=== PATIENT | male | born 1980 | race American Indian/Alaskan Native ===

== ENCOUNTER 2017-03-19 17:32 | Inpatient (IN) | payer MEDICAID, OTHER ==
--- NOTE | 2017-03-19 18:33 | ED PDOC ---
Arrival/HPI - General Chief Complaint: GI Problem Time Seen by Provider: 03/19/17 18:32 Historian: Patient - History of Present Illness Narrative History of Present Illness (Text): 03/19/17 18:32 A 36 year old male, whose past medical history includes asthma, presents to the emergency department complaining of generalized weakness over the past 4-5 days. Patient notes excess thirst and urination, mild nausea and non-bilious non -bloody vomiting. Patient denies any fever, chills, abdominal pain, chest pain, shortness of breath or any other complaints. Time/Duration: Other (4-5 days) Symptom Course: Unchanged Context: Home Past Medical History - Provider Review Nursing Documentation Reviewed: Yes - Infectious Disease Hx of Infectious Diseases: None - Pulmonary Hx Asthma: Yes - Psychiatric Hx Substance Use: Yes - Anesthesia Hx Anesthesia: No Family/Social History - Physician Review Nursing Documentation Reviewed: Yes Family/Social History: No Known Family HX Smoking Status: Light Smoker < 10 Cigarettes Daily Hx Alcohol Use: No Hx Substance Use: Yes Substance used: marijuana Allergies/Home Meds Allergies/Adverse Reactions: Allergies No Known Allergies Allergy (Verified 03/19/17 17:36) Home Medications: Home Meds Medication Instructions Recorded Confirmed No Known Home Med 03/19/17 03/19/17 Physical Exam - Physical Exam Narrative Physical Exam (Text): - Review of Systems Constitutional: (+) Generalized weakness. absent: Weight Change, Fevers Eyes: Normal ENT: (+) excess thirst. denies sore throat, denies tristhmus Respiratory: Normal. absent: SOB, Cough, Sputum Cardiovascular: absent: Chest Pain, Palpitations, Syncope Gastrointestinal: (+) Nausea, Vomiting absent: Abdominal Pain, Diarrhea Genitourinary: (+) frequency absent: Dysuria, Hematuria, vaginal bleeding Musculoskeletal: Normal. absent: Arthralgias, Back Pain, Neck Pain Skin: no rashes, no erythema Neurological: absent: Focal Weakness Endocrine: Normal Hemo/Lymphatic: Normal Psychiatric: No suicidal or homicidal ideations Physical exam Patient appears age appropriate in no distress, speaking full sentences without difficulty - Systems Exam Head: Present: Atraumatic, Normocephalic Pupils: Present: PERRL Extroacular Muscles: Present: EOMI Conjunctiva: Present: Normal Mouth: Present: Moist Mucous Membranes Neck: Present: Normal Range of Motion. No: MIDLINE TENDERNESS, Paraspinal Tenderness Respiratory/Chest: Present: Clear to Auscultation, Good Air Exchange. No: Respiratory Distress, Accessory Muscle Use, Tachypneic Cardiovascular: Present: Regular Rate and Rhythm, Normal S1, S2, Peripheal Pulses Present. No: Murmurs Abdomen: Present: Normal Bowel Sounds. No: Tenderness, Distention, Peritoneal Signs, Rebound, Guarding Back: Present: Normal Inspection. No: Midline Tenderness, Paraspinal Tenderness Upper Extremity: Present: Normal Inspection. No: Cyanosis, Edema Lower Extremity: Present: Normal Inspection. No: Edema Neurological: Present: GCS=15, Speech Normal, cranial nerves II through XII fully intact with no cerebellar abnormality, neurosensory fully intact. No focal neurological deficits. Skin: Present: Warm, Dry, Normal Color. No: Rashes Lymphatic: Present: OX3, NI, NC Psychiatric: Present: Alert, Oriented x 3, Normal Insight, Normal Concentration Vital Signs Reviewed: Yes Vital Signs Temp Pulse Resp BP Pulse Ox 03/19/17 17:40 98.6 F 115 H 18 126/88 97 Temperature: Afebrile Blood Pressure: Normal Pulse: Tachycardic Respiratory Rate: Normal Appearance: Positive for: Well-Appearing, Non-Toxic, Comfortable Pain Distress: None Mental Status: Positive for: Alert and Oriented X 3 Finger Stick Blood Glucose: 378 Medical Decision Making ED Course and Treatment: Impression: A 36 year old male with generalized weakness. Patient notes excess thirst and urination, nausea and vomiting. Physical exam unremarkable. Plan: -- Chest xray -- Labs -- Urinalysis -- IV fluids -- Reassess and disposition Progress Notes: EKG shows NSR at [address]-segment elevations, normal intervals. Interpreted by me. 03/19/17 20:37 glucose 479 gap 20 Ph 7.29 fluids ordered .1U/kg/hr drip ordered dw Dr. Cantor from MICU, accepted MICU admission pt in no distress, aware of and agrees with plan Chest xray interpreted by ED physician shows no pneumothorax, no cardiomegaly, no infiltrates - Lab Interpretations Lab Results: 03/19/17 18:55 03/19/17 18:55 Lab Results 03/19/17 18:55: Sodium 142, Chloride 101, Potassium 4.8, Carbon Dioxide 21, Anion Gap 25 H, BUN 18, Creatinine 1.4, Est GFR ( Amer) > 60, Est GFR ( Non-Af Amer) 57, Random Glucose 479 H*, Calcium 10.2, Total Bilirubin 1.1, AST 29, ALT 37, Alkaline Phosphatase 138 H, Total Protein 9.7 H, Albumin 4.9 H, Globulin 4.8, Albumin/Globulin Ratio 1.0 L 03/19/17 18:55: pO2 47, VBG pH 7.29 L, VBG pCO2 41.0, VBG HCO3 19.7 L, VBG Total CO2 21.0 L, VBG O2 Sat (Calc) 84.4 H, VBG Base Excess -6.6 L, VBG Potassium 4.7, Sodium 140.0, Chloride 101.0, Glucose 475 H*, Lactate 1.7, FiO2 21.0, Venous Blood Potassium 4.7 03/19/17 18:55: WBC 15.9 H, RBC 5.83, Hgb 17.0, Hct 47.9, MCV 82.2, MCH 29.2, MCHC 35.5, RDW 13.5, Plt Count 151, MPV 12.4 H, Gran % 72.9 H, Lymph % (Auto) 18.2 L, [place] % (Auto) 8.3 H, Eos % (Auto) 0.3 L, Baso % (Auto) 0.3, Gran # 11.58 H, Lymph # 2.9, [place] # 1.3 H, Eos # 0.1, Baso # 0.04 03/19/17 18:22: POC Glucose (mg/dL) 378 H I have reviewed the lab results: Yes - RAD Interpretation Radiology Orders: 03/19/17 18:35 CHEST PORTABLE [RAD] Stat - Medication Orders Current Medication Orders: Insulin Human Regular 100 (units/ Sodium Chloride) 100 mls @ 10 mls/hr IV .Q10H PRN; Protocol; 10 UNITS/HR PRN Reason: TITRATE PER MD ORDER Discontinued Medications Sodium Chloride (Sodium Chloride 0.9%) 2,000 mls @ 1,000 mls/hr IV .Q2H STA Stop: 03/19/17 20:34 Last Admin: 03/19/17 18:56 Dose: 1,000 mls/hr - Scribe Statement The provider has reviewed the documentation as recorded by the Scribe Adwoa Carrvez Provider Neshaibe Attestation: All medical record entries made by the Scribe were at my direction and personally dictated by me. I have reviewed the chart and agree that the record accurately reflects my personal performance of the history, physical exam, medical decision making, and the department course for this patient. I have also personally directed, reviewed, and agree with the discharge instructions and disposition. Disposition/Present on Arrival - Present on Arrival Any Indicators Present on Arrival: No History of DVT/PE: No History of Uncontrolled Diabetes: No Urinary Catheter: No History of Decub. Ulcer: No History Surgical Site Infection Following: None - Disposition Have Diagnosis and Disposition been Completed?: Yes Diagnosis: DKA (diabetic ketoacidoses) Disposition: HOSPITALIZED Disposition Time: 20:39 Patient Plan: Admission Condition: FAIR Referrals: Milan Skaggs, [Primary Care Provider] - Follow up with primary Forms: [employer] (Belarusian)
[2017-03-19] MEDS ORDERED: Sodium Chloride 0.9% 2,000 ML IV STA (18:35)
[2017-03-19 19:06] LABS: VENOUS BLOOD GAS BASE EXCESS -6.6 mmol/L (0.0-2.0); VENOUS BLOOD PH 7.29 (7.32-7.43)
[2017-03-19 19:08] LABS: BASO # 0.04 K/mm3 (0.0-2.0); BASO % 0.3 % (0.0-3.0); EOS # 0.1 (0.0-0.7); EOS % 0.3 % (1.5-5.0); GRAN # 11.58 (1.4-6.5); GRAN % 72.9 % (50.0-68.0); HEMATOCRIT 47.9 % (42.0-52.0); LYMPH # 2.9 (1.2-3.4); LYMPH % 18.2 % (22.0-35.0); MEAN CELL VOLUME 82.2 fl (80.0-105.0); MEAN CORPUSCULAR HEMOGLOBIN 29.2 pg (25.0-35.0); MEAN CORPUSCULAR HGB CONC 35.5 g/dl (31.0-37.0); MEAN PLATELET VOLUME 12.4 fl (7.0-11.0); MONO # 1.3 (0.1-0.6); MONO % 8.3 % (1.0-6.0); RED CELL DISTRIBUTION WIDTH 13.5 % (11.5-14.5); WHITE BLOOD COUNT 15.9 10^3/ul (4.5-11.0)
[2017-03-19 19:16] LABS: ALKALINE PHOSPHATASE 138 U/L (38-126); ALT/SGPT 37 U/L (7-56); AST/SGOT 29 U/L (17-59); BILIRUBIN,TOTAL 1.1 mg/dL (0.2-1.3); BLOOD UREA NITROGEN 18 mg/dL (7-21); CALCIUM 10.2 mg/dL (8.4-10.5); CARBON DIOXIDE 21 mmol/L (21-33); CHLORIDE 101 mmol/L (98-107); GFR AFRICAN-AMERICAN > 60; POTASSIUM 4.8 mmol/L (3.6-5.0); SODIUM 142 mmol/L (132-148); TOTAL PROTEIN 9.7 g/dL (5.8-8.3)
[2017-03-19 19:19] LABS: GLUCOSE,RANDOM 479 mg/dL (70-110)
[2017-03-19] MEDS ORDERED: Insulin Regular 100 UNITS in Sodium Chloride 0.9% 99 ML IV PRN ×2 (20:33→21:27)
[2017-03-19 20:50] LABS: URINE BILIRUBIN NEGATIVE (NEGATIVE); URINE BLOOD TRACE-INTACT (NEGATIVE); URINE GLUCOSE (UA) >=1000 mg/dL (NEGATIVE); URINE KETONE >=80 mg/dL (NEGATIVE); URINE LEUKOCYTE ESTERASE NEGATIVE Leu/uL (NEGATIVE); URINE PROTEIN NEGATIVE mg/dL (<30 mg/dL); URINE UROBILINOGEN 0.2 E.U./dL (<1 E.U./dL)
[2017-03-19 20:54] LABS: URINE APPEARANCE CLEAR (CLEAR); URINE COLOR YELLOW (YELLOW)
[2017-03-19 21:24] LABS: URINE EPITHELIAL CELLS 0 - 2 /hpf (0-5); URINE WBC NEGATIVE /hpf (0-6)
[2017-03-19 21:25] LABS: URINE BACTERIA FEW (NEG)
[2017-03-19] MEDS ORDERED: Sodium Chloride 0.9% 1,000 ML IV STA (21:26)
--- NOTE | 2017-03-19 22:12 | CP.PCM.HP ---
<MIKE WEBER - Last Filed: 03/19/17 22:47> History of Present Illness - History of Present Illness History of Present Illness: Mike Weber DO PGY1 - Internal Medicine H&P / ICU Admission CC: Frequent urination and excessive thirst HPI: 36 yo M with PMH of asthma presents to ER complaining of frequent urination and excessive thirst for the past 7 days, associated with fatigue and vomiting. He also reports a 2 day history of diarrhea 2 days ago, started with very dark (but not black) stools which then became green, then soft brown. He denies F/C, CP, SOB, cough, abdominal pain, sore throat, nasal congestion, recent illness or travel, sick contacts. He admits to vomiting whenever he tries to eat or drink. He has never had this problem before. PMH: Mild intermittent asthma Meds: Ventolin PRN PSH: None Social: Tob 5PYH current smoker, EtOH denies, Illicits daily marijuana use FHx: DM in grandmother All: NKDA ROS: Constitutional: +Fatigue pt denies fever, chills, generalized weakness ENT: pt denies dysphagia, otalgia, hearing deficit, rhinorrhea Eyes: pt denies sudden loss of vision, diplopia, blurred vision MSK: pt denies muscle stiffness, joint pain, extremity cramping Cardio: pt denies sob, heart murmur, CP Pulm: pt denies cough, hemoptysis, wheeze GI: +Loss of appetite, vomiting, diarrhea pt denies abdominal pain, constipation , melena, nausea : +Urinary frequency pt denies burning on urination, hematuria, urinary urgency Neuro: pt denies paresis, paresthesia, dizziness, herndon, numbness, tingling Derm: pt denies skin changes, lesions, nail changes Endo: +Polydipsia pt denies intolerance to heat/cold, diaphoresis, night sweats Psych: pt denies anxiety, depression, mood changes Present on Admission - Present on Admission Any Indicators Present on Admission: No Past Patient History - Infectious Disease Hx of Infectious Diseases: None - Past Social History Smoking Status: Light Smoker < 10 Cigarettes Daily - PULMONARY Hx Asthma: Yes - PSYCHIATRIC Hx Substance Use: Yes - SURGICAL HISTORY Hx Surgeries: No - ANESTHESIA Hx Anesthesia: No Meds Allergies/Adverse Reactions: Allergies Allergy/AdvReac Type Severity Reaction Status Date / Time No Known Allergies Allergy Verified 03/19/17 17:36 Physical Exam - Constitutional Appears: Non-toxic, No Acute Distress - Head Exam Head Exam: ATRAUMATIC, NORMOCEPHALIC - Eye Exam Eye Exam: EOMI, PERRL - ENT Exam ENT Exam: Mucous Membranes Dry - Neck Exam Neck exam: Negative for: Lymphadenopathy, Thyromegaly - Respiratory Exam Respiratory Exam: Clear to Auscultation Bilateral. absent: Rales, Rhonchi, Wheezes - Cardiovascular Exam Cardiovascular Exam: RRR, +S1, +S2 - GI/Abdominal Exam GI & Abdominal Exam: Normal Bowel Sounds, Soft. absent: Tenderness - Extremities Exam Extremities exam: Negative for: calf tenderness, pedal edema - Back Exam Back exam: absent: CVA tenderness (L), CVA tenderness (R) - Neurological Exam Neurological exam: Alert, CN II-XII Intact, Oriented x3 - Psychiatric Exam Psychiatric exam: Normal Affect, Normal Mood - Skin Skin Exam: Dry, Intact, Normal Color Results - Vital Signs Recent Vital Signs: Last Vital Signs Temp 98.6 F 03/19/17 17:40 Pulse 115 H 03/19/17 17:40 Resp 18 03/19/17 17:40 BP 126/88 03/19/17 17:40 Pulse Ox 97 03/19/17 17:40 - Labs Result Diagrams: 03/19/17 18:55 03/19/17 18:55 Labs: Laboratory Results - last 24 hr 03/19/17 03/19/17 03/19/17 18:22 18:55 18:55 WBC 15.9 H RBC 5.83 Hgb 17.0 Hct 47.9 MCV 82.2 MCH 29.2 MCHC 35.5 RDW 13.5 Plt Count 151 MPV 12.4 H Gran % 72.9 H Lymph % (Auto) 18.2 L [place] % (Auto) 8.3 H Eos % (Auto) 0.3 L Baso % (Auto) 0.3 Gran # 11.58 H Lymph # 2.9 [place] # 1.3 H Eos # 0.1 Baso # 0.04 pO2 47 VBG pH 7.29 L VBG pCO2 41.0 VBG HCO3 19.7 L VBG Total CO2 21.0 L VBG O2 Sat (Calc) 84.4 H VBG Base Excess -6.6 L VBG Potassium 4.7 Sodium 140.0 Chloride 101.0 Glucose 475 H* Lactate 1.7 FiO2 21.0 Potassium Carbon Dioxide Anion Gap BUN Creatinine Est GFR ( Amer) Est GFR (Non-Af Amer) POC Glucose (mg/dL) 378 H Random Glucose Calcium Total Bilirubin AST ALT Alkaline Phosphatase Total Protein Albumin Globulin Albumin/Globulin Ratio Venous Blood Potassium 4.7 Urine Color Urine Appearance Urine pH Ur Specific [place] Urine Protein Urine Glucose (UA) Urine Ketones Urine Blood Urine Nitrate Urine Bilirubin Urine Urobilinogen Ur Leukocyte Esterase Urine RBC Urine WBC Ur Epithelial Cells Urine Bacteria 03/19/17 03/19/17 03/19/17 18:55 20:28 21:29 WBC RBC Hgb Hct MCV MCH MCHC RDW Plt Count MPV Gran % Lymph % (Auto) [place] % (Auto) Eos % (Auto) Baso % (Auto) Gran # Lymph # [place] # Eos # Baso # pO2 VBG pH VBG pCO2 VBG HCO3 VBG Total CO2 VBG O2 Sat (Calc) VBG Base Excess VBG Potassium Sodium 142 Chloride 101 Glucose Lactate FiO2 Potassium 4.8 Carbon Dioxide 21 Anion Gap 25 H BUN 18 Creatinine 1.4 Est GFR ( Amer) > 60 Est GFR (Non-Af Amer) 57 POC Glucose (mg/dL) 356 H Random Glucose 479 H* Calcium 10.2 Total Bilirubin 1.1 AST 29 ALT 37 Alkaline Phosphatase 138 H Total Protein 9.7 H Albumin 4.9 H Globulin 4.8 Albumin/Globulin Ratio 1.0 L Venous Blood Potassium Urine Color Yellow Urine Appearance Clear Urine pH 6.0 Ur Specific [place] 1.015 Urine Protein Negative Urine Glucose (UA) >=1000 Urine Ketones >=80 Urine Blood Trace-intact H Urine Nitrate Negative Urine Bilirubin Negative Urine Urobilinogen 0.2 Ur Leukocyte Esterase Negative Urine RBC 1 - 3 Urine WBC Negative Ur Epithelial Cells 0 - 2 Urine Bacteria Few Assessment & Plan - Assessment and Plan (Free Text) Assessment: 36 yo M with PMH of mild intermittent asthma presents in DKA, new onset diabetes Plan: Neuro - Patient AAOx3, mentating well; neuro exam grossly normal - Continue to monitor Cardio - RRR, hemodynamically stable - Start NS@150cc/hr - Continue to monitor Pulm - H/o mild intermittent asthma, hasn't required rescue inhaler in over 3 months , currently lungs CTA b/l - CXR complete in ER, shows no active disease, though pending official read - Maintain O2 sat >90% - Keep HOB >30 degrees GI - Currently NPO - Zofran for nausea - Protonix daily for Ppx Renal - Last BMP shows K 4.8, AG 20, will recheck again Q4 - Monitor and replete lytes as needed - Received 2L NS bolus in ER, ordered 1L NS bolus - Start NS @150cc/hr Endo - Patient presents in DKA with blood glucose 479 and AG 20, with ketonuria - Started on Insulin drip, will titrate off when anion gap closes and start basal insulin, depending on calculated 24 hour requirements - Accucheck Q1h - Start NS@150cc/hr, will switch to D5 in 1/2NS when blood glucose is below 250 - Check A1c with AM labs - Consulted Endo (Dr. Dubose), appreciate recs ID - Afebrile, no leukocytosis - Continue to monitor Hem/Onc - H/H stable with no apparent active bleeding - Continue to monitor GI/DVT ppx Patient seen, discussed, and reviewed with attending <Manish Cantor Q - Last Filed: 03/19/17 23:41> Results - Vital Signs Recent Vital Signs: Last Vital Signs Temp 98.6 F 03/19/17 17:40 Pulse 71 03/19/17 22:27 Resp 16 03/19/17 22:27 BP 133/71 03/19/17 22:27 Pulse Ox 97 03/19/17 22:27 - Labs Result Diagrams: 03/19/17 18:55 03/19/17 22:06 Labs: Laboratory Results - last 24 hr 03/19/17 03/19/17 03/19/17 21:29 22:06 23:02 Sodium 143 Potassium 4.9 Chloride 108 H Carbon Dioxide 18 L Anion Gap 22 H BUN 16 Creatinine 1.2 Est GFR ( Amer) > 60 Est GFR (Non-Af Amer) > 60 POC Glucose (mg/dL) 356 H 329 H Random Glucose 370 H* D Calcium 8.8 Phosphorus 4.3 Magnesium 2.1 Attending/Attestation - Attestation I have personally seen and examined this patient.: Yes I have fully participated in the care of the patient.: Yes I have reviewed all pertinent clinical information: Yes Notes (Text): 03/19/17 23:38 I agree with the above mentioned note and exam by the resident with the addition /exception of the followin36 y/o male with mild intermittent Asthma (well controlled) presents with nausea , lethargy, fatigue and vomiting worsening over the past 5 days. Patient also has noted increased urinary frequency without dysuria over the past 2 weeks as well. Denies any prior history of being diagnosed with DM; states having a checkup with a primary care physician within the past year and was told that he did not have any other medical problems. Will be placed on IVF and insulin drip until his AG resolves and blood sugars are manageable. All labs and images available thus far have been reviewed personally case discussed with Dr. Frey in the ED Total time of care: 35 minutes
[2017-03-19 22:23] LABS: BLOOD UREA NITROGEN 16 mg/dL (7-21); CALCIUM 8.8 mg/dL (8.4-10.5); CARBON DIOXIDE 18 mmol/L (21-33); CHLORIDE 108 mmol/L (98-107); GFR AFRICAN-AMERICAN > 60; MAGNESIUM 2.1 mg/dL (1.7-2.2); PHOSPHOROUS 4.3 mg/dL (2.5-4.5); POTASSIUM 4.9 mmol/L (3.6-5.0); SODIUM 143 mmol/L (132-148)
[2017-03-19 22:28] LABS: GLUCOSE,RANDOM 370 mg/dL (70-110)
[2017-03-19] MEDS ORDERED: Sodium Chloride 0.9% 1,000 ML IV SCH (22:30)
[2017-03-20 01:03] VITALS: BMI 36.6
[2017-03-20] MEDS ORDERED: Insulin Regular 100 UNITS in Sodium Chloride 0.9% 99 ML IV PRN (01:48)
[2017-03-20 05:08] LABS: BASO # 0.04 K/mm3 (0.0-2.0); BASO % 0.3 % (0.0-3.0); EOS # 0.1 (0.0-0.7); EOS % 0.9 % (1.5-5.0); GRAN # 8.7 (1.4-6.5); HEMATOCRIT 43.7 % (42.0-52.0); LYMPH # 4.2 (1.2-3.4); LYMPH % 29.7 % (22.0-35.0); MEAN CELL VOLUME 82.3 fl (80.0-105.0); MEAN CORPUSCULAR HEMOGLOBIN 28.6 pg (25.0-35.0); MEAN CORPUSCULAR HGB CONC 34.8 g/dl (31.0-37.0); MEAN PLATELET VOLUME 12.1 fl (7.0-11.0); MONO % 7.1 % (1.0-6.0); RED CELL DISTRIBUTION WIDTH 13.7 % (11.5-14.5)
[2017-03-20 05:27] LABS: BLOOD UREA NITROGEN 14 mg/dL (7-21); CALCIUM 8.9 mg/dL (8.4-10.5); CARBON DIOXIDE 21 mmol/L (21-33); CHLORIDE 109 mmol/L (95-110); GFR AFRICAN-AMERICAN > 60; GLUCOSE,RANDOM 254 mg/dL (70-110); POTASSIUM 4.4 mmol/L (3.6-5.0); SODIUM 143 mmol/L (132-148)
[2017-03-20] MEDS: Pantoprazole 40 mg EC Tab PO SCH (05:37)
[2017-03-20] MEDS ORDERED: Dextrose 5%/0.45% NS 1,000 ML IV SCH (07:00)
--- NOTE | 2017-03-20 08:05 | CP.PCM.PN ---
<Lyssa Garcia - Last Filed: 03/20/17 13:02> Subjective - Date & Time of Evaluation Date of Evaluation: 03/20/17 Time of Evaluation: 07:00 - Subjective Subjective: Progress note for hospitalist service- Dr Phillips Patient admitted with DKA overnight. Had nausea and vomiting, however states the n/v has resolved. patient currently c/o dry lips, asking for food. Patient otherwise denies cp, sob, n/v/d. Patient is afebrile. Objective - Vital Signs/Intake and Output Vital Signs (last 24 hours): Temp Pulse Resp BP Pulse Ox 98 F 60 18 149/100 H 97 03/20/17 04:00 03/20/17 06:30 03/20/17 00:36 03/20/17 00:36 03/19/17 22:27 Intake and Output: 03/20/17 03/20/17 06:59 18:59 Intake Total 1103 Output Total 950 Balance 153 - Medications Medications: Current Medications Enoxaparin Sodium (Lovenox) 40 mg SC DAILY IMANI PRN Reason: Protocol Insulin Human Regular 100 (units/ Sodium Chloride) 100 mls @ 3 mls/hr IV .Q24H PRN; Protocol; 3 UNITS/HR PRN Reason: TITRATE PER PROTOCOL Last Titration: 03/20/17 05:07 Dose: 3 units/hr, 3 mls/hr Dextrose/Sodium Chloride (Dextrose 5%/0.45% Ns 1000 Ml) 1,000 mls @ 150 mls/hr IV .Q6H40M [facility] Last Admin: 03/20/17 07:01 Dose: 150 mls/hr Ondansetron HCl (Zofran Inj) 4 mg IVP Q6H PRN PRN Reason: Nausea/Vomiting Pantoprazole Sodium (Protonix Ec Tab) 40 mg PO 0600 [facility] Last Admin: 03/20/17 05:37 Dose: 40 mg - Labs Labs: 03/20/17 04:20 03/20/17 04:20 - Constitutional Appears: No Acute Distress, Other (obese) - Head Exam Head Exam: ATRAUMATIC, NORMAL INSPECTION, NORMOCEPHALIC - Eye Exam Eye Exam: EOMI, Normal appearance, PERRL Pupil Exam: NORMAL ACCOMODATION, PERRL - ENT Exam ENT Exam: Mucous Membranes Dry - Neck Exam Neck Exam: Full ROM, Normal Inspection - Respiratory Exam Respiratory Exam: Clear to Ausculation Bilateral, NORMAL BREATHING PATTERN. absent: Rales, Rhonchi, Wheezes, Respiratory Distress, Stridor - Cardiovascular Exam Cardiovascular Exam: REGULAR RHYTHM, RRR, +S1, +S2. absent: Murmur - GI/Abdominal Exam GI & Abdominal Exam: Soft, Normal Bowel Sounds. absent: Distended, Firm, Guarding, Rigid, Tenderness - Extremities Exam Extremities Exam: Normal Inspection. absent: Pedal Edema - Back Exam Back Exam: NORMAL INSPECTION - Neurological Exam Neurological Exam: Alert, Awake, Oriented x3 - Psychiatric Exam Psychiatric exam: Normal Affect, Normal Mood - Skin Skin Exam: Dry, Intact, Normal Color, Warm Assessment and Plan - Assessment and Plan (Free Text) Assessment: Patient is a 36 y/o with pmh of asthma whom presented with nausea and vomiting and was found to have DKA with glucose of 378, anion gap metabolic acidosis gap of 20, with ketonuria. Patient is currently on insulin drip. Plan: 1) Diabetic ketoacidosis - Anion gap is currently 13 - will continue bmp q4 - will continue to monitor fingersticks q1 - Continue D5 1/2NS until gap closes - will change to sc insulin when gap closes. - NPO for now, zofran prn for nausea. 2) Newly diagnosed diabetes - management as above - hgb 0f 9.3 - diabetic education - endocrinology consulted. 3) Asthma- will continue albuterol prn 4) DVT prophylaxis is Lovenox, Gi prophylaxis is protonix. Patient seen, examined and case discussed with Dr Phillips. <Jacqueline RODRÍGUEZ,[facility] - Last Filed: 03/20/17 17:52> Objective - Vital Signs/Intake and Output Vital Signs (last 24 hours): Temp Pulse Resp BP Pulse Ox 98 F 60 19 112/75 97 03/20/17 04:00 03/20/17 13:50 03/20/17 13:50 03/20/17 13:00 03/19/17 22:27 Intake and Output: 03/20/17 03/20/17 06:59 18:59 Intake Total 1103 8 Output Total 950 Balance 153 8 - Medications Medications: Current Medications Albuterol Sulfate (Albuterol 0.042% Inhal Kim (1.25mg/3ml) Ud) 1.25 mg IH Q2H PRN PRN Reason: Shortness of Breath Enoxaparin Sodium (Lovenox) 40 mg SC DAILY IMANI PRN Reason: Protocol Last Admin: 03/20/17 10:30 Dose: 40 mg Sodium Chloride (Sodium Chloride 0.45%) 1,000 mls @ 125 mls/hr IV .Q8H IMANI Last Admin: 03/20/17 15:32 Dose: 125 mls/hr Insulin Human NPH (Humulin N) 14 units SC HS IMANI Insulin Human Regular (Humulin R Low) 0 units SC ACHS IMANI PRN Reason: Protocol Ondansetron HCl (Zofran Inj) 4 mg IVP Q6H PRN PRN Reason: Nausea/Vomiting Pantoprazole Sodium (Protonix Ec Tab) 40 mg PO 0600 [facility] Last Admin: 03/20/17 05:37 Dose: 40 mg - Labs Labs: 03/20/17 04:20 03/20/17 13:40 Attending/Attestation - Attestation I have personally seen and examined this patient.: Yes I have fully participated in the care of the patient.: Yes I have reviewed all pertinent clinical information, including history, physical exam and plan: Yes Notes (Text): 03/20/17 17:49 Patient was seen and examined with behavioral medical director. Agreed with resident assessment and plan. 36 yrs old with PMH of Obesity, Asthma was admitted with new onset DM, presented with DKA, treated with IV fluid, Insulin drip, anion gap is closed, off insulin drip, started on SC insulin., Hemoglobin 1 AC is pending.We will monitor blood sugars and adjust medications.Patient will need diabetic education prior to the discharge. Management plan was discussed in detail with patient Education was provided.
--- NOTE | 2017-03-20 09:00 | RAD ---
HISTORY: cough COMPARISON: No prior. FINDINGS: LUNGS: No active pulmonary disease. PLEURA: No significant pleural effusion identified, no pneumothorax apparent. CARDIOVASCULAR: Normal. OSSEOUS STRUCTURES: No significant abnormalities. VISUALIZED UPPER ABDOMEN: Normal. OTHER FINDINGS: None. IMPRESSION: No active disease.
[2017-03-20 09:20] LABS: BLOOD UREA NITROGEN 13 mg/dL (7-21); CALCIUM 8.5 mg/dL (8.4-10.5); CARBON DIOXIDE 21 mmol/L (21-33); CHLORIDE 111 mmol/L (98-107); GFR AFRICAN-AMERICAN > 60; GLUCOSE,RANDOM 269 mg/dL (70-110); POTASSIUM 4.3 mmol/L (3.6-5.0); SODIUM 145 mmol/L (132-148)
[2017-03-20] MEDS: Enoxaparin 40 mg Syringe SC SCH (10:30)
--- NOTE | 2017-03-20 10:42 | CP.CCUPN ---
<Michelle Fan - Last Filed: 03/20/17 10:50> CCU Subjective - Physician Review Events Since Last Encounter (Free Text): 03/20/17 10:39 No acute events overnight per nursing Subjective (Free Text): 03/20/17 10:40 Critical care progress note for Dr. Julianna Fan, PGY-1 Pt S & E at bedside. Pt reports hunger for the first time in 7 days, polydipsia, polyuria, weakness improving. Denies N/V/F/C, SOB, CP, ab pain, other complaints. Critical Care Time Spent (in minutes): 35 CCU Objective - Vital Signs / Intake & Output Intake and Output (Last 8hrs): Intake & Output 03/19/17 03/20/17 03/20/17 22:59 06:59 14:59 Intake Total 1103 8 Output Total 950 Balance 153 8 Weight 112.491 kg Intake: IV 1103 8 Left Antecubital 1074 Output: Urine 950 Urine, Voided 950 Other: Voiding Method Urinal - Physical Exam Head: Positive for: Atraumatic, Normocephalic Extroacular Muscles: Positive for: EOMI Conjunctiva: Positive for: Normal Mouth: Positive for: Dry Nose (External): Positive for: Atraumatic Neck: Positive for: Normal Range of Motion Respiratory/Chest: Positive for: Clear to Auscultation, Good Air Exchange. Negative for: Respiratory Distress, Accessory Muscle Use Cardiovascular: Positive for: Regular Rate and Rhythm, Normal S1, S2. Negative for: Murmurs Abdomen: Positive for: Normal Bowel Sounds. Negative for: Tenderness, Distention (obese), Peritoneal Signs Upper Extremity: Positive for: Normal Inspection. Negative for: Cyanosis, Edema Lower Extremity: Positive for: Normal Inspection. Negative for: Edema Neurological: Positive for: GCS=15, CN II-XII Intact, Speech Normal Skin: Positive for: Warm, Dry, Normal Color. Negative for: Rashes Psychiatric: Positive for: Alert, Oriented x 3, Normal Insight, Normal Concentration - Medications Active Medications: Active Medications Generic Name Dose Route Start Last Admin Trade Name Freq PRN Reason Stop Dose Admin Enoxaparin Sodium 40 mg 03/20/17 10:00 Lovenox SC DAILY IMANI Protocol Insulin Human Regular 100 100 mls @ 3 mls/hr 03/20/17 02:09 03/20/17 08:00 units/ Sodium Chloride IV 3 units/hr .Q24H PRN 3 mls/hr TITRATE PER PROTOCOL Titration Protocol 3 UNITS/HR Dextrose/Sodium Chloride 1,000 mls @ 150 mls/hr 03/20/17 07:00 03/20/17 07:01 Dextrose 5%/0.45% Ns 1000 Ml IV 150 mls/hr .Q6H40M IMANI Administration Ondansetron HCl 4 mg 03/19/17 21:26 Zofran Inj IVP Q6H PRN Nausea/Vomiting Pantoprazole Sodium 40 mg 03/20/17 06:00 03/20/17 05:37 Protonix Ec Tab PO 40 mg 0600 IMANI Administration - Patient Studies Lab Studies: Lab Studies 03/20/17 03/20/17 03/20/17 Range/Units 09:00 08:03 07:08 WBC (4.5-11.0) 10^3/ul RBC (3.5-6.1) 10^6/uL Hgb (14.0-18.0) g/dL Hct (42.0-52.0) % MCV (80.0-105.0) fl MCH (25.0-35.0) pg MCHC (31.0-37.0) g/dl RDW (11.5-14.5) % Plt Count (120.0-450.0) 10^3/uL MPV (7.0-11.0) fl Gran % (50.0-68.0) % Lymph % (Auto) (22.0-35.0) % [place] % (Auto) (1.0-6.0) % Eos % (Auto) (1.5-5.0) % Baso % (Auto) (0.0-3.0) % Gran # (1.4-6.5) Lymph # (1.2-3.4) [place] # (0.1-0.6) Eos # (0.0-0.7) Baso # (0.0-2.0) K/mm3 Sodium 145 (132-148) mmol/L Potassium 4.3 (3.6-5.0) mmol/L Chloride 111 H (98-107) mmol/L Carbon Dioxide 21 (21-33) mmol/L Anion Gap 17 (10-20) BUN 13 (7-21) mg/dL Creatinine 1.0 (0.5-1.4) mg/dL Est GFR ( Amer) > 60 Est GFR (Non-Af Amer) > 60 POC Glucose (mg/dL) 241 H 188 H (65-110) mg/dL Random Glucose 269 H (70-110) mg/dL Calcium 8.5 (8.4-10.5) mg/dL Phosphorus (2.5-4.5) mg/dL Magnesium (1.7-2.2) mg/dL 03/20/17 03/20/17 03/20/17 Range/Units 06:56 05:49 05:06 WBC (4.5-11.0) 10^3/ul RBC (3.5-6.1) 10^6/uL Hgb (14.0-18.0) g/dL Hct (42.0-52.0) % MCV (80.0-105.0) fl MCH (25.0-35.0) pg MCHC (31.0-37.0) g/dl RDW (11.5-14.5) % Plt Count (120.0-450.0) 10^3/uL MPV (7.0-11.0) fl Gran % (50.0-68.0) % Lymph % (Auto) (22.0-35.0) % [place] % (Auto) (1.0-6.0) % Eos % (Auto) (1.5-5.0) % Baso % (Auto) (0.0-3.0) % Gran # (1.4-6.5) Lymph # (1.2-3.4) [place] # (0.1-0.6) Eos # (0.0-0.7) Baso # (0.0-2.0) K/mm3 Sodium (132-148) mmol/L Potassium (3.6-5.0) mmol/L Chloride (98-107) mmol/L Carbon Dioxide (21-33) mmol/L Anion Gap (10-20) BUN (7-21) mg/dL Creatinine (0.5-1.4) mg/dL Est GFR ( Amer) Est GFR (Non-Af Amer) POC Glucose (mg/dL) 222 H 239 H 240 H (65-110) mg/dL Random Glucose (70-110) mg/dL Calcium (8.4-10.5) mg/dL Phosphorus (2.5-4.5) mg/dL Magnesium (1.7-2.2) mg/dL 03/20/17 03/20/17 03/20/17 Range/Units 04:20 04:20 03:55 WBC 14.0 H (4.5-11.0) 10^3/ul RBC 5.31 (3.5-6.1) 10^6/uL Hgb 15.2 (14.0-18.0) g/dL Hct 43.7 (42.0-52.0) % MCV 82.3 (80.0-105.0) fl MCH 28.6 (25.0-35.0) pg MCHC 34.8 (31.0-37.0) g/dl RDW 13.7 (11.5-14.5) % Plt Count 122 (120.0-450.0) 10^3/uL MPV 12.1 H (7.0-11.0) fl Gran % 62.0 (50.0-68.0) % Lymph % (Auto) 29.7 (22.0-35.0) % [place] % (Auto) 7.1 H (1.0-6.0) % Eos % (Auto) 0.9 L (1.5-5.0) % Baso % (Auto) 0.3 (0.0-3.0) % Gran # 8.70 H (1.4-6.5) Lymph # 4.2 H (1.2-3.4) [place] # 1.0 H (0.1-0.6) Eos # 0.1 (0.0-0.7) Baso # 0.04 (0.0-2.0) K/mm3 Sodium 143 (132-148) mmol/L Potassium 4.4 (3.6-5.0) mmol/L Chloride 109 (98-107) mmol/L Carbon Dioxide 21 (21-33) mmol/L Anion Gap 17 (10-20) BUN 14 (7-21) mg/dL Creatinine 1.1 (0.5-1.4) mg/dL Est GFR ( Amer) > 60 Est GFR (Non-Af Amer) > 60 POC Glucose (mg/dL) 228 H (65-110) mg/dL Random Glucose 254 H (70-110) mg/dL Calcium 8.9 (8.4-10.5) mg/dL Phosphorus (2.5-4.5) mg/dL Magnesium (1.7-2.2) mg/dL 03/20/17 03/20/17 03/20/17 Range/Units 03:01 02:05 01:33 WBC (4.5-11.0) 10^3/ul RBC (3.5-6.1) 10^6/uL Hgb (14.0-18.0) g/dL Hct (42.0-52.0) % MCV (80.0-105.0) fl MCH (25.0-35.0) pg MCHC (31.0-37.0) g/dl RDW (11.5-14.5) % Plt Count (120.0-450.0) 10^3/uL MPV (7.0-11.0) fl Gran % (50.0-68.0) % Lymph % (Auto) (22.0-35.0) % [place] % (Auto) (1.0-6.0) % Eos % (Auto) (1.5-5.0) % Baso % (Auto) (0.0-3.0) % Gran # (1.4-6.5) Lymph # (1.2-3.4) [place] # (0.1-0.6) Eos # (0.0-0.7) Baso # (0.0-2.0) K/mm3 Sodium (132-148) mmol/L Potassium (3.6-5.0) mmol/L Chloride (98-107) mmol/L Carbon Dioxide (21-33) mmol/L Anion Gap (10-20) BUN (7-21) mg/dL Creatinine (0.5-1.4) mg/dL Est GFR ( Amer) Est GFR (Non-Af Amer) POC Glucose (mg/dL) 245 H 278 H 285 H (65-110) mg/dL Random Glucose (70-110) mg/dL Calcium (8.4-10.5) mg/dL Phosphorus (2.5-4.5) mg/dL Magnesium (1.7-2.2) mg/dL 03/20/17 03/19/17 03/19/17 Range/Units 00:14 23:02 22:06 WBC (4.5-11.0) 10^3/ul RBC (3.5-6.1) 10^6/uL Hgb (14.0-18.0) g/dL Hct (42.0-52.0) % MCV (80.0-105.0) fl MCH (25.0-35.0) pg MCHC (31.0-37.0) g/dl RDW (11.5-14.5) % Plt Count (120.0-450.0) 10^3/uL MPV (7.0-11.0) fl Gran % (50.0-68.0) % Lymph % (Auto) (22.0-35.0) % [place] % (Auto) (1.0-6.0) % Eos % (Auto) (1.5-5.0) % Baso % (Auto) (0.0-3.0) % Gran # (1.4-6.5) Lymph # (1.2-3.4) [place] # (0.1-0.6) Eos # (0.0-0.7) Baso # (0.0-2.0) K/mm3 Sodium 143 (132-148) mmol/L Potassium 4.9 (3.6-5.0) mmol/L Chloride 108 H (98-107) mmol/L Carbon Dioxide 18 L (21-33) mmol/L Anion Gap 22 H (10-20) BUN 16 (7-21) mg/dL Creatinine 1.2 (0.5-1.4) mg/dL Est GFR ( Amer) > 60 Est GFR (Non-Af Amer) > 60 POC Glucose (mg/dL) 307 H 329 H (65-110) mg/dL Random Glucose 370 H* D (70-110) mg/dL Calcium 8.8 (8.4-10.5) mg/dL Phosphorus 4.3 (2.5-4.5) mg/dL Magnesium 2.1 (1.7-2.2) mg/dL 03/19/17 Range/Units 21:29 WBC (4.5-11.0) 10^3/ul RBC (3.5-6.1) 10^6/uL Hgb (14.0-18.0) g/dL Hct (42.0-52.0) % MCV (80.0-105.0) fl MCH (25.0-35.0) pg MCHC (31.0-37.0) g/dl RDW (11.5-14.5) % Plt Count (120.0-450.0) 10^3/uL MPV (7.0-11.0) fl Gran % (50.0-68.0) % Lymph % (Auto) (22.0-35.0) % [place] % (Auto) (1.0-6.0) % Eos % (Auto) (1.5-5.0) % Baso % (Auto) (0.0-3.0) % Gran # (1.4-6.5) Lymph # (1.2-3.4) [place] # (0.1-0.6) Eos # (0.0-0.7) Baso # (0.0-2.0) K/mm3 Sodium (132-148) mmol/L Potassium (3.6-5.0) mmol/L Chloride (98-107) mmol/L Carbon Dioxide (21-33) mmol/L Anion Gap (10-20) BUN (7-21) mg/dL Creatinine (0.5-1.4) mg/dL Est GFR ( Amer) Est GFR (Non-Af Amer) POC Glucose (mg/dL) 356 H (65-110) mg/dL Random Glucose (70-110) mg/dL Calcium (8.4-10.5) mg/dL Phosphorus (2.5-4.5) mg/dL Magnesium (1.7-2.2) mg/dL Laboratory Results - last 24 hr 03/19/17 03/19/17 03/19/17 21:29 22:06 23:02 WBC RBC Hgb Hct MCV MCH MCHC RDW Plt Count MPV Gran % Lymph % (Auto) [place] % (Auto) Eos % (Auto) Baso % (Auto) Gran # Lymph # [place] # Eos # Baso # Sodium 143 Potassium 4.9 Chloride 108 H Carbon Dioxide 18 L Anion Gap 22 H BUN 16 Creatinine 1.2 Est GFR ( Amer) > 60 Est GFR (Non-Af Amer) > 60 POC Glucose (mg/dL) 356 H 329 H Random Glucose 370 H* D Calcium 8.8 Phosphorus 4.3 Magnesium 2.1 03/20/17 03/20/17 03/20/17 00:14 01:33 02:05 WBC RBC Hgb Hct MCV MCH MCHC RDW Plt Count MPV Gran % Lymph % (Auto) [place] % (Auto) Eos % (Auto) Baso % (Auto) Gran # Lymph # [place] # Eos # Baso # Sodium Potassium Chloride Carbon Dioxide Anion Gap BUN Creatinine Est GFR ( Amer) Est GFR (Non-Af Amer) POC Glucose (mg/dL) 307 H 285 H 278 H Random Glucose Calcium Phosphorus Magnesium 03/20/17 03/20/17 03/20/17 03:01 03:55 04:20 WBC RBC Hgb Hct MCV MCH MCHC RDW Plt Count MPV Gran % Lymph % (Auto) [place] % (Auto) Eos % (Auto) Baso % (Auto) Gran # Lymph # [place] # Eos # Baso # Sodium 143 Potassium 4.4 Chloride 109 Carbon Dioxide 21 Anion Gap 17 BUN 14 Creatinine 1.1 Est GFR ( Amer) > 60 Est GFR (Non-Af Amer) > 60 POC Glucose (mg/dL) 245 H 228 H Random Glucose 254 H Calcium 8.9 Phosphorus Magnesium 03/20/17 03/20/17 03/20/17 04:20 05:06 05:49 WBC 14.0 H RBC 5.31 Hgb 15.2 Hct 43.7 MCV 82.3 MCH 28.6 MCHC 34.8 RDW 13.7 Plt Count 122 MPV 12.1 H Gran % 62.0 Lymph % (Auto) 29.7 [place] % (Auto) 7.1 H Eos % (Auto) 0.9 L Baso % (Auto) 0.3 Gran # 8.70 H Lymph # 4.2 H [place] # 1.0 H Eos # 0.1 Baso # 0.04 Sodium Potassium Chloride Carbon Dioxide Anion Gap BUN Creatinine Est GFR ( Amer) Est GFR (Non-Af Amer) POC Glucose (mg/dL) 240 H 239 H Random Glucose Calcium Phosphorus Magnesium 03/20/17 03/20/17 03/20/17 06:56 07:08 08:03 WBC RBC Hgb Hct MCV MCH MCHC RDW Plt Count MPV Gran % Lymph % (Auto) [place] % (Auto) Eos % (Auto) Baso % (Auto) Gran # Lymph # [place] # Eos # Baso # Sodium Potassium Chloride Carbon Dioxide Anion Gap BUN Creatinine Est GFR ( Amer) Est GFR (Non-Af Amer) POC Glucose (mg/dL) 222 H 188 H 241 H Random Glucose Calcium Phosphorus Magnesium 03/20/17 09:00 WBC RBC Hgb Hct MCV MCH MCHC RDW Plt Count MPV Gran % Lymph % (Auto) [place] % (Auto) Eos % (Auto) Baso % (Auto) Gran # Lymph # [place] # Eos # Baso # Sodium 145 Potassium 4.3 Chloride 111 H Carbon Dioxide 21 Anion Gap 17 BUN 13 Creatinine 1.0 Est GFR ( Amer) > 60 Est GFR (Non-Af Amer) > 60 POC Glucose (mg/dL) Random Glucose 269 H Calcium 8.5 Phosphorus Magnesium Fingerstick Blood Sugar Results: 245 Review of Systems - Review of Systems All systems: reviewed and no additional remarkable complaints except - Constitutional Constitutional: absent: Fever, Chills - EENT Eyes: UNREMARKABLE Ears: UNREMARKABLE Nose/Mouth/Throat: UNREMARKABLE - Cardiovascular Cardiovascular: UNREMARKABLE. absent: Chest Pain - Respiratory Respiratory: UNREMARKABLE - Gastrointestinal Gastrointestinal: UNREMARKABLE. absent: Abdominal Pain, Nausea, Vomiting - Genitourinary Genitourinary: Urinary Frequency - Musculoskeletal Musculoskeletal: UNREMARKABLE - Integumentary Integumentary: UNREMARKABLE - Neurological Neurological: UNREMARKABLE - Psychiatric Psychiatric: UNREMARKABLE - Endocrine Endocrine: Polydipsia, Polyuria Critical Care Progress Note - Prophylaxis GI Prophylaxis GI: PPI - Prophylaxis DVT Prophylaxis DVT: SCDs - Nutrition Nutrition: Nutrition Category Date Time Status NPO Diet [DIET] Diets 03/19/17 Breakfast Ordered Assessment/Plan - Assessment and Plan (Free Text) Assessment: 36M w/DKA, stable in ICU Plan: Neuro AOx3 Stable CVS BP WNL Monitor Pulm Stable on RA Target SaO2>94% GI NPO until gap closes OK for ice chips Ok for PO meds Zofran PRN Monitor Voids freely Nephro D5, 1/2NS@150 Hyperchloridemia at 111 Other electrolytes WNL Monitor for AG closure ID Afebrile No leukocytosis Monitor Endo BS 269 BS Q1H On insulin drip AG 13 BMP Q6H Will transition to ISS & long acting insulin med after gap closes FU A1c Diabetic education Endo following MSK OOBTC Ambulate GI/DVT ppx Lovenox SCDs Protonix Dispo Monitor for AG closure Will feed after gap closes DW attending ERICK Fan-1 - Date & Time Date: 03/20/17 Time: 06:45 <Kristine RODRÍGUEZ,Inasandy H - Last Filed: 03/20/17 11:22> CCU Objective - Vital Signs / Intake & Output Vital Signs (Last 4 hours): Vital Signs Pulse Resp BP 03/20/17 10:30 93 H 38 H 03/20/17 10:28 70 20 03/20/17 10:20 61 19 03/20/17 10:10 62 18 03/20/17 10:01 61 15 135/87 03/20/17 10:00 68 12 03/20/17 09:50 70 18 03/20/17 09:40 59 L 14 03/20/17 09:30 65 20 03/20/17 09:20 60 15 03/20/17 09:10 65 19 03/20/17 09:00 71 16 131/92 H 03/20/17 08:50 79 20 03/20/17 08:40 62 9 L 03/20/17 08:30 71 17 03/20/17 08:20 76 23 03/20/17 08:10 63 18 03/20/17 08:01 64 19 107/72 03/20/17 08:00 66 20 03/20/17 07:50 72 11 L 03/20/17 07:40 67 15 03/20/17 07:30 65 18 Intake and Output (Last 8hrs): Intake & Output 03/19/17 03/20/17 03/20/17 22:59 06:59 14:59 Intake Total 1103 8 Output Total 950 Balance 153 8 Weight 248 lb Intake: IV 1103 8 Left Antecubital 1074 Output: Urine 950 Urine, Voided 950 Other: Voiding Method Urinal - Medications Active Medications: Active Medications Generic Name Dose Route Start Last Admin Trade Name Freq PRN Reason Stop Dose Admin Enoxaparin Sodium 40 mg 03/20/17 10:00 Lovenox SC DAILY IMANI Protocol Insulin Human Regular 100 100 mls @ 3 mls/hr 03/20/17 02:09 03/20/17 08:00 units/ Sodium Chloride IV 3 units/hr .Q24H PRN 3 mls/hr TITRATE PER PROTOCOL Titration Protocol 3 UNITS/HR Dextrose/Sodium Chloride 1,000 mls @ 150 mls/hr 03/20/17 07:00 03/20/17 07:01 Dextrose 5%/0.45% Ns 1000 Ml IV 150 mls/hr .Q6H40M IMANI Administration Ondansetron HCl 4 mg 03/19/17 21:26 Zofran Inj IVP Q6H PRN Nausea/Vomiting Pantoprazole Sodium 40 mg 03/20/17 06:00 03/20/17 05:37 Protonix Ec Tab PO 40 mg 0600 IMANI Administration - Patient Studies Lab Studies: Lab Studies 03/20/17 03/20/17 03/20/17 Range/Units 11:00 10:06 09:00 WBC (4.5-11.0) 10^3/ul RBC (3.5-6.1) 10^6/uL Hgb (14.0-18.0) g/dL Hct (42.0-52.0) % MCV (80.0-105.0) fl MCH (25.0-35.0) pg MCHC (31.0-37.0) g/dl RDW (11.5-14.5) % Plt Count (120.0-450.0) 10^3/uL MPV (7.0-11.0) fl Gran % (50.0-68.0) % Lymph % (Auto) (22.0-35.0) % [place] % (Auto) (1.0-6.0) % Eos % (Auto) (1.5-5.0) % Baso % (Auto) (0.0-3.0) % Gran # (1.4-6.5) Lymph # (1.2-3.4) [place] # (0.1-0.6) Eos # (0.0-0.7) Baso # (0.0-2.0) K/mm3 Sodium 145 (132-148) mmol/L Potassium 4.3 (3.6-5.0) mmol/L Chloride 111 H (98-107) mmol/L Carbon Dioxide 21 (21-33) mmol/L Anion Gap 17 (10-20) BUN 13 (7-21) mg/dL Creatinine 1.0 (0.5-1.4) mg/dL Est GFR ( Amer) > 60 Est GFR (Non-Af Amer) > 60 POC Glucose (mg/dL) 302 H 278 H (65-110) mg/dL Random Glucose 269 H (70-110) mg/dL Calcium 8.5 (8.4-10.5) mg/dL Phosphorus (2.5-4.5) mg/dL Magnesium (1.7-2.2) mg/dL 03/20/17 03/20/17 03/20/17 Range/Units 08:03 07:08 06:56 WBC (4.5-11.0) 10^3/ul RBC (3.5-6.1) 10^6/uL Hgb (14.0-18.0) g/dL Hct (42.0-52.0) % MCV (80.0-105.0) fl MCH (25.0-35.0) pg MCHC (31.0-37.0) g/dl RDW (11.5-14.5) % Plt Count (120.0-450.0) 10^3/uL MPV (7.0-11.0) fl Gran % (50.0-68.0) % Lymph % (Auto) (22.0-35.0) % [place] % (Auto) (1.0-6.0) % Eos % (Auto) (1.5-5.0) % Baso % (Auto) (0.0-3.0) % Gran # (1.4-6.5) Lymph # (1.2-3.4) [place] # (0.1-0.6) Eos # (0.0-0.7) Baso # (0.0-2.0) K/mm3 Sodium (132-148) mmol/L Potassium (3.6-5.0) mmol/L Chloride (98-107) mmol/L Carbon Dioxide (21-33) mmol/L Anion Gap (10-20) BUN (7-21) mg/dL Creatinine (0.5-1.4) mg/dL Est GFR ( Amer) Est GFR (Non-Af Amer) POC Glucose (mg/dL) 241 H 188 H 222 H (65-110) mg/dL Random Glucose (70-110) mg/dL Calcium (8.4-10.5) mg/dL Phosphorus (2.5-4.5) mg/dL Magnesium (1.7-2.2) mg/dL 03/20/17 03/20/17 03/20/17 Range/Units 05:49 05:06 04:20 WBC 14.0 H (4.5-11.0) 10^3/ul RBC 5.31 (3.5-6.1) 10^6/uL Hgb 15.2 (14.0-18.0) g/dL Hct 43.7 (42.0-52.0) % MCV 82.3 (80.0-105.0) fl MCH 28.6 (25.0-35.0) pg MCHC 34.8 (31.0-37.0) g/dl RDW 13.7 (11.5-14.5) % Plt Count 122 (120.0-450.0) 10^3/uL MPV 12.1 H (7.0-11.0) fl Gran % 62.0 (50.0-68.0) % Lymph % (Auto) 29.7 (22.0-35.0) % [place] % (Auto) 7.1 H (1.0-6.0) % Eos % (Auto) 0.9 L (1.5-5.0) % Baso % (Auto) 0.3 (0.0-3.0) % Gran # 8.70 H (1.4-6.5) Lymph # 4.2 H (1.2-3.4) [place] # 1.0 H (0.1-0.6) Eos # 0.1 (0.0-0.7) Baso # 0.04 (0.0-2.0) K/mm3 Sodium (132-148) mmol/L Potassium (3.6-5.0) mmol/L Chloride (98-107) mmol/L Carbon Dioxide (21-33) mmol/L Anion Gap (10-20) BUN (7-21) mg/dL Creatinine (0.5-1.4) mg/dL Est GFR ( Amer) Est GFR (Non-Af Amer) POC Glucose (mg/dL) 239 H 240 H (65-110) mg/dL Random Glucose (70-110) mg/dL Calcium (8.4-10.5) mg/dL Phosphorus (2.5-4.5) mg/dL Magnesium (1.7-2.2) mg/dL 03/20/17 03/20/17 03/20/17 Range/Units 04:20 03:55 03:01 WBC (4.5-11.0) 10^3/ul RBC (3.5-6.1) 10^6/uL Hgb (14.0-18.0) g/dL Hct (42.0-52.0) % MCV (80.0-105.0) fl MCH (25.0-35.0) pg MCHC (31.0-37.0) g/dl RDW (11.5-14.5) % Plt Count (120.0-450.0) 10^3/uL MPV (7.0-11.0) fl Gran % (50.0-68.0) % Lymph % (Auto) (22.0-35.0) % [place] % (Auto) (1.0-6.0) % Eos % (Auto) (1.5-5.0) % Baso % (Auto) (0.0-3.0) % Gran # (1.4-6.5) Lymph # (1.2-3.4) [place] # (0.1-0.6) Eos # (0.0-0.7) Baso # (0.0-2.0) K/mm3 Sodium 143 (132-148) mmol/L Potassium 4.4 (3.6-5.0) mmol/L Chloride 109 (98-107) mmol/L Carbon Dioxide 21 (21-33) mmol/L Anion Gap 17 (10-20) BUN 14 (7-21) mg/dL Creatinine 1.1 (0.5-1.4) mg/dL Est GFR ( Amer) > 60 Est GFR (Non-Af Amer) > 60 POC Glucose (mg/dL) 228 H 245 H (65-110) mg/dL Random Glucose 254 H (70-110) mg/dL Calcium 8.9 (8.4-10.5) mg/dL Phosphorus (2.5-4.5) mg/dL Magnesium (1.7-2.2) mg/dL 03/20/17 03/20/17 03/20/17 Range/Units 02:05 01:33 00:14 WBC (4.5-11.0) 10^3/ul RBC (3.5-6.1) 10^6/uL Hgb (14.0-18.0) g/dL Hct (42.0-52.0) % MCV (80.0-105.0) fl MCH (25.0-35.0) pg MCHC (31.0-37.0) g/dl RDW (11.5-14.5) % Plt Count (120.0-450.0) 10^3/uL MPV (7.0-11.0) fl Gran % (50.0-68.0) % Lymph % (Auto) (22.0-35.0) % [place] % (Auto) (1.0-6.0) % Eos % (Auto) (1.5-5.0) % Baso % (Auto) (0.0-3.0) % Gran # (1.4-6.5) Lymph # (1.2-3.4) [place] # (0.1-0.6) Eos # (0.0-0.7) Baso # (0.0-2.0) K/mm3 Sodium (132-148) mmol/L Potassium (3.6-5.0) mmol/L Chloride (98-107) mmol/L Carbon Dioxide (21-33) mmol/L Anion Gap (10-20) BUN (7-21) mg/dL Creatinine (0.5-1.4) mg/dL Est GFR ( Amer) Est GFR (Non-Af Amer) POC Glucose (mg/dL) 278 H 285 H 307 H (65-110) mg/dL Random Glucose (70-110) mg/dL Calcium (8.4-10.5) mg/dL Phosphorus (2.5-4.5) mg/dL Magnesium (1.7-2.2) mg/dL 03/19/17 03/19/17 03/19/17 Range/Units 23:02 22:06 21:29 WBC (4.5-11.0) 10^3/ul RBC (3.5-6.1) 10^6/uL Hgb (14.0-18.0) g/dL Hct (42.0-52.0) % MCV (80.0-105.0) fl MCH (25.0-35.0) pg MCHC (31.0-37.0) g/dl RDW (11.5-14.5) % Plt Count (120.0-450.0) 10^3/uL MPV (7.0-11.0) fl Gran % (50.0-68.0) % Lymph % (Auto) (22.0-35.0) % [place] % (Auto) (1.0-6.0) % Eos % (Auto) (1.5-5.0) % Baso % (Auto) (0.0-3.0) % Gran # (1.4-6.5) Lymph # (1.2-3.4) [place] # (0.1-0.6) Eos # (0.0-0.7) Baso # (0.0-2.0) K/mm3 Sodium 143 (132-148) mmol/L Potassium 4.9 (3.6-5.0) mmol/L Chloride 108 H (98-107) mmol/L Carbon Dioxide 18 L (21-33) mmol/L Anion Gap 22 H (10-20) BUN 16 (7-21) mg/dL Creatinine 1.2 (0.5-1.4) mg/dL Est GFR ( Amer) > 60 Est GFR (Non-Af Amer) > 60 POC Glucose (mg/dL) 329 H 356 H (65-110) mg/dL Random Glucose 370 H* D (70-110) mg/dL Calcium 8.8 (8.4-10.5) mg/dL Phosphorus 4.3 (2.5-4.5) mg/dL Magnesium 2.1 (1.7-2.2) mg/dL Laboratory Results - last 24 hr 03/19/17 03/19/17 03/19/17 21:29 22:06 23:02 WBC RBC Hgb Hct MCV MCH MCHC RDW Plt Count MPV Gran % Lymph % (Auto) [place] % (Auto) Eos % (Auto) Baso % (Auto) Gran # Lymph # [place] # Eos # Baso # Sodium 143 Potassium 4.9 Chloride 108 H Carbon Dioxide 18 L Anion Gap 22 H BUN 16 Creatinine 1.2 Est GFR ( Amer) > 60 Est GFR (Non-Af Amer) > 60 POC Glucose (mg/dL) 356 H 329 H Random Glucose 370 H* D Calcium 8.8 Phosphorus 4.3 Magnesium 2.1 03/20/17 03/20/17 03/20/17 00:14 01:33 02:05 WBC RBC Hgb Hct MCV MCH MCHC RDW Plt Count MPV Gran % Lymph % (Auto) [place] % (Auto) Eos % (Auto) Baso % (Auto) Gran # Lymph # [place] # Eos # Baso # Sodium Potassium Chloride Carbon Dioxide Anion Gap BUN Creatinine Est GFR ( Amer) Est GFR (Non-Af Amer) POC Glucose (mg/dL) 307 H 285 H 278 H Random Glucose Calcium Phosphorus Magnesium 03/20/17 03/20/17 03/20/17 03:01 03:55 04:20 WBC RBC Hgb Hct MCV MCH MCHC RDW Plt Count MPV Gran % Lymph % (Auto) [place] % (Auto) Eos % (Auto) Baso % (Auto) Gran # Lymph # [place] # Eos # Baso # Sodium 143 Potassium 4.4 Chloride 109 Carbon Dioxide 21 Anion Gap 17 BUN 14 Creatinine 1.1 Est GFR ( Amer) > 60 Est GFR (Non-Af Amer) > 60 POC Glucose (mg/dL) 245 H 228 H Random Glucose 254 H Calcium 8.9 Phosphorus Magnesium 03/20/17 03/20/17 03/20/17 04:20 05:06 05:49 WBC 14.0 H RBC 5.31 Hgb 15.2 Hct 43.7 MCV 82.3 MCH 28.6 MCHC 34.8 RDW 13.7 Plt Count 122 MPV 12.1 H Gran % 62.0 Lymph % (Auto) 29.7 [place] % (Auto) 7.1 H Eos % (Auto) 0.9 L Baso % (Auto) 0.3 Gran # 8.70 H Lymph # 4.2 H [place] # 1.0 H Eos # 0.1 Baso # 0.04 Sodium Potassium Chloride Carbon Dioxide Anion Gap BUN Creatinine Est GFR ( Amer) Est GFR (Non-Af Amer) POC Glucose (mg/dL) 240 H 239 H Random Glucose Calcium Phosphorus Magnesium 03/20/17 03/20/17 03/20/17 06:56 07:08 08:03 WBC RBC Hgb Hct MCV MCH MCHC RDW Plt Count MPV Gran % Lymph % (Auto) [place] % (Auto) Eos % (Auto) Baso % (Auto) Gran # Lymph # [place] # Eos # Baso # Sodium Potassium Chloride Carbon Dioxide Anion Gap BUN Creatinine Est GFR ( Amer) Est GFR (Non-Af Amer) POC Glucose (mg/dL) 222 H 188 H 241 H Random Glucose Calcium Phosphorus Magnesium 03/20/17 03/20/17 03/20/17 09:00 10:06 11:00 WBC RBC Hgb Hct MCV MCH MCHC RDW Plt Count MPV Gran % Lymph % (Auto) [place] % (Auto) Eos % (Auto) Baso % (Auto) Gran # Lymph # [place] # Eos # Baso # Sodium 145 Potassium 4.3 Chloride 111 H Carbon Dioxide 21 Anion Gap 17 BUN 13 Creatinine 1.0 Est GFR ( Amer) > 60 Est GFR (Non-Af Amer) > 60 POC Glucose (mg/dL) 278 H 302 H Random Glucose 269 H Calcium 8.5 Phosphorus Magnesium Critical Care Progress Note - Nutrition Nutrition: Nutrition Category Date Time Status NPO Diet [DIET] Diets 03/19/17 Breakfast Ordered Attending/Attestation - Attestation I have personally seen and examined this patient.: Yes I have fully participated in the care of the patient.: Yes I have reviewed all pertinent clinical information: Yes Notes (Text): 03/20/17 11:21 36 y/o w/ New onset DM. In the ICU for resolving DKA ON insulin drip protocol Once AG closes, overlap Levimir for 2 hrs and restart diet. Replace K , Phos and IV fluids NS and D5. Endocrine consult. dvt p cc time 55 min
--- NOTE | 2017-03-20 13:07 | CARD ---
APPROVED REPORT EKG Measurement Heart [id number] <Conclusion> Normal sinus rhythm Normal ECG
[2017-03-20] MEDS ORDERED: Albuterol 0.042% Inhal Sol (1.25 mg/3 mL) UD IH PRN (13:16)
[2017-03-20 14:09] LABS: BLOOD UREA NITROGEN 12 mg/dL (7-21); CALCIUM 8.9 mg/dL (8.4-10.5); CARBON DIOXIDE 24 mmol/L (21-33); GFR AFRICAN-AMERICAN > 60; GLUCOSE,RANDOM 292 mg/dL (70-110); POTASSIUM 4.2 mmol/L (3.6-5.0); SODIUM 142 mmol/L (132-148)
[2017-03-20 14:11] LABS: CHLORIDE 109 mmol/L (98-107)
[2017-03-20] MEDS ORDERED: Insulin Detemir 100 units/ml Vial (Levemir) SC ONE (14:30)
[2017-03-20] MEDS: Sodium Chloride 0.45% 1,000 ML IV SCH (15:32)
[2017-03-20] MEDS ORDERED: Insulin Human NPH/Reg 70/30 Vial(3 ml) SC SCH (16:30)
[2017-03-20] MEDS ORDERED: Insulin Reg-LOW-Coverage SC SCH (16:30)
[2017-03-20] MEDS: Insulin Reg-LOW-Coverage SC SCH ×2 (17:46→21:56)
[2017-03-20] MEDS ORDERED: Insulin Human NPH 1 UNITS/0.01 ML SC SCH (22:00)
[2017-03-21] MEDS: Sodium Chloride 0.45% 1,000 ML IV SCH ×2 (03:55→11:20)
[2017-03-21 05:21] VITALS: O2SAT 98
[2017-03-21] MEDS: Pantoprazole 40 mg EC Tab PO SCH (05:31)
[2017-03-21 06:18] LABS: BASO # 0.05 K/mm3 (0.0-2.0); BASO % 0.4 % (0.0-3.0); EOS # 0.3 (0.0-0.7); EOS % 2.8 % (1.5-5.0); GRAN # 6.25 (1.4-6.5); GRAN % 53.1 % (50.0-68.0); HEMATOCRIT 41.8 % (42.0-52.0); LYMPH # 4.3 (1.2-3.4); LYMPH % 36.4 % (22.0-35.0); MEAN CELL VOLUME 82.9 fl (80.0-105.0); MEAN CORPUSCULAR HGB CONC 34.9 g/dl (31.0-37.0); MEAN PLATELET VOLUME 11.2 fl (7.0-11.0); MONO # 0.9 (0.1-0.6); MONO % 7.3 % (1.0-6.0); RED CELL DISTRIBUTION WIDTH 13.8 % (11.5-14.5); WHITE BLOOD COUNT 11.8 10^3/ul (4.5-11.0)
[2017-03-21 07:09] LABS: BLOOD UREA NITROGEN 12 mg/dL (7-21); CALCIUM 8.7 mg/dL (8.4-10.5); CARBON DIOXIDE 25 mmol/L (21-33); CHLORIDE 106 mmol/L (98-107); GFR AFRICAN-AMERICAN > 60; GLUCOSE,RANDOM 234 mg/dL (70-110); SODIUM 141 mmol/L (132-148)
[2017-03-21] MEDS ORDERED: Insulin Human NPH/Reg 70/30 Vial(3 ml) SC SCH (07:30)
[2017-03-21] MEDS: Insulin Reg-LOW-Coverage SC SCH ×2 (08:13→11:22)
--- NOTE | 2017-03-21 08:29 | CON ---
DATE: 03/20/17 LOCATION: ICU 129, room 4. HISTORY OF PRESENT ILLNESS: This is a 36-year-old male with history of chronic bronchial asthma, presenting here with recent onset of uncontrolled type 2 diabetes and is being referred now for diabetic evaluation and management. He admits to marked polyuria, nocturia and polydipsia over the past week or so prior to admission with supervening episodic vomiting episodes and loose watery diarrhea as noted. PAST MEDICAL HISTORY: As mentioned above, history of bronchial asthma, currently using inhalers as noted. FAMILY HISTORY: Positive for diabetes with his maternal grandmother having type 2 diabetes and hypertension. SOCIAL HISTORY: The patient admits to current nicotine use and denies any other substance abuse. REVIEW OF SYSTEMS: As mentioned above. Admits to generalized body weakness with easy fatigability and tiredness and suboptimal energy level, also admits to dizziness and lightheadedness, worse on the day of admission with supervening bifrontal headaches and marked hypersomnolence as noted. No chest pains or palpitations or PND. His oral intake is variable with nausea, dyspepsia, and episodic vomiting episodes with loose watery diarrhea, especially on the last day or so prior to admission. Also admits to marked polyuria, nocturia and polydipsia and about a 5-pound or so weight loss. PHYSICAL EXAMINATION: GENERAL: This is an overweight male, in no apparent distress. VITAL SIGNS: Blood pressure of 140/80, pulse of 70 beats per minute, regular, temperature 98, respirations 20, height is 5 feet 9 inches, weight is 248 pounds. HEENT: Head is normocephalic. Eyes; anicteric with pink conjunctivae. Funduscopy not possible at this time. Ears, nose and throat otherwise normal. NECK: Supple. Thyroid gland is normal in size. No carotid bruits or any cervical adenopathy. CARDIOPULMONARY: Adynamic precordium. S1 and S2 is rapid and regular. LUNGS: Clear to auscultation. ABDOMEN: Flat and soft with positive bowel sounds. EXTREMITIES: No peripheral edema. Pulses are +2 bilaterally. LABORATORY DATA: The initial chemistries actually showed a BUN of 18, sodium 142, potassium 4.8, chloride 101, CO2 of 21, glucose 479 and creatinine 1.4. Repeat CO2 was 18. His hemoglobin A1c was reported as 9.3%. ASSESSMENT: This is a 36-year-old male with uncontrolled and decompensated type 2 insulin-requiring diabetes, presenting here with metabolic symptoms typical of recent onset and evaluation of type 2 diabetes with concomitant clinical and biochemical evidence of dehydration and prerenal azotemia. There is no evidence of diabetic ketoacidosis at this time. We would expect mild ketosis because of the recent vomiting episodes prior to admission. PLAN OF MANAGEMENT: As discussed with the patient and staff, we will discontinue the insulin drip infusion at this time as this was given overnight for better glycemic control. We will continue the vigorous IV hydration and switch him to half normal saline given at 125 mL per hour as ordered. We will obtain serial chemistries and supplement accordingly as needed. Because of the self-pay and financial constraints of the patient, we will switch him over to a more affordable and cheaper convention of insulin therapy and we will start him with Humulin NPH given at 40 units at bedtime daily to start tonight. We will also add a premixed Humulin 70/30 given at 30 units a.c. breakfast and 20 units a.c. dinner to start today as ordered. We will modify the coverage scale to obviate hypoglycemia and detailed orders have been given. We will also initiate dietary education and dietary instructions to include insulin self administration at this time. We will follow. Brina Dubose MD
[2017-03-21 08:51] VITALS: BP 144/91; PULSE 63; RESP 20; TEMP 97.5
[2017-03-21] MEDS: Enoxaparin 40 mg Syringe SC SCH (09:21)
--- NOTE | 2017-03-21 16:09 | CP.PCM.DIS ---
<JUANITA GEE - Last Filed: 03/21/17 17:18> Provider - Provider Date of Admission: 03/19/17 20:40 Attending physician: Jarad Carmona MD Time Spent in preparation of Discharge (in minutes): 45 Hospital Course - Lab Results Lab Results: Micro Results 03/19/17 23:30 Nose MRSA Culture (Admit) - Final MRSA NOT DETECTED Most Recent Lab Values WBC 11.8 10^3/ul (4.5-11.0) H 03/21/17 05:10 RBC 5.04 10^6/uL (3.5-6.1) 03/21/17 05:10 Hgb 14.6 g/dL (14.0-18.0) 03/21/17 05:10 Hct 41.8 % (42.0-52.0) L 03/21/17 05:10 MCV 82.9 fl (80.0-105.0) 03/21/17 05:10 MCH 29.0 pg (25.0-35.0) 03/21/17 05:10 MCHC 34.9 g/dl (31.0-37.0) 03/21/17 05:10 RDW 13.8 % (11.5-14.5) 03/21/17 05:10 Plt Count 109 10^3/uL (120.0-450.0) L 03/21/17 05:10 MPV 11.2 fl (7.0-11.0) H 03/21/17 05:10 Gran % 53.1 % (50.0-68.0) 03/21/17 05:10 Lymph % (Auto) 36.4 % (22.0-35.0) H 03/21/17 05:10 [place] % (Auto) 7.3 % (1.0-6.0) H 03/21/17 05:10 Eos % (Auto) 2.8 % (1.5-5.0) 03/21/17 05:10 Baso % (Auto) 0.4 % (0.0-3.0) 03/21/17 05:10 Gran # 6.25 (1.4-6.5) 03/21/17 05:10 Lymph # 4.3 (1.2-3.4) H 03/21/17 05:10 [place] # 0.9 (0.1-0.6) H 03/21/17 05:10 Eos # 0.3 (0.0-0.7) 03/21/17 05:10 Baso # 0.05 K/mm3 (0.0-2.0) 03/21/17 05:10 pO2 47 mm/Hg (30-55) 03/19/17 18:55 VBG pH 7.29 (7.32-7.43) L 03/19/17 18:55 VBG pCO2 41.0 (40-60) 03/19/17 18:55 VBG HCO3 19.7 mmol/l (21-28) L 03/19/17 18:55 VBG Total CO2 21.0 mmol.L (22-28) L 03/19/17 18:55 VBG O2 Sat (Calc) 84.4 % (40-65) H 03/19/17 18:55 VBG Base Excess -6.6 mmol/L (0.0-2.0) L 03/19/17 18:55 VBG Potassium 4.7 mmol/L (3.6-5.2) 03/19/17 18:55 Sodium 140.0 mmol/L (132-148) 03/19/17 18:55 Chloride 101.0 mmol/L (98-107) 03/19/17 18:55 Glucose 475 mg/dl (75-110) H* 03/19/17 18:55 Lactate 1.7 mmol/L (0.7-2.1) 03/19/17 18:55 FiO2 21.0 % 03/19/17 18:55 Sodium 141 mmol/L (132-148) 03/21/17 05:10 Potassium 4.0 mmol/L (3.6-5.0) 03/21/17 05:10 Chloride 106 mmol/L (98-107) 03/21/17 05:10 Carbon Dioxide 25 mmol/L (21-33) 03/21/17 05:10 Anion Gap 14 (10-20) 03/21/17 05:10 BUN 12 mg/dL (7-21) 03/21/17 05:10 Creatinine 1.1 mg/dL (0.5-1.4) 03/21/17 05:10 Est GFR ( Amer) > 60 03/21/17 05:10 Est GFR (Non-Af Amer) > 60 03/21/17 05:10 POC Glucose (mg/dL) 383 mg/dL (65-110) H 03/21/17 11:18 Random Glucose 234 mg/dL (70-110) H 03/21/17 05:10 Hemoglobin A1c 9.3 % (4.2-6.5) H 03/20/17 04:20 Calcium 8.7 mg/dL (8.4-10.5) 03/21/17 05:10 Phosphorus 4.3 mg/dL (2.5-4.5) 03/19/17 22:06 Magnesium 2.1 mg/dL (1.7-2.2) 03/19/17 22:06 Total Bilirubin 1.1 mg/dL (0.2-1.3) 03/19/17 18:55 AST 29 U/L (17-59) 03/19/17 18:55 ALT 37 U/L (7-56) 03/19/17 18:55 Alkaline Phosphatase 138 U/L (38-126) H 03/19/17 18:55 Total Protein 9.7 g/dL (5.8-8.3) H 03/19/17 18:55 Albumin 4.9 g/dL (3.0-4.8) H 03/19/17 18:55 Globulin 4.8 gm/dL 03/19/17 18:55 Albumin/Globulin Ratio 1.0 (1.1-1.8) L 03/19/17 18:55 Venous Blood Potassium 4.7 mmol/L (3.6-5.2) 03/19/17 18:55 Urine Color Yellow (YELLOW) 03/19/17 20:28 Urine Appearance Clear (CLEAR) 03/19/17 20:28 Urine pH 6.0 (4.7-8.0) 03/19/17 20:28 Ur Specific [place] 1.015 (1.005-1.035) 03/19/17 20:28 Urine Protein Negative mg/dL (<30 mg/dL) 03/19/17 20:28 Urine Glucose (UA) >=1000 mg/dL (NEGATIVE) 03/19/17 20:28 Urine Ketones >=80 mg/dL (NEGATIVE) 03/19/17 20:28 Urine Blood Trace-intact (NEGATIVE) H 03/19/17 20:28 Urine Nitrate Negative (NEGATIVE) 03/19/17 20:28 Urine Bilirubin Negative (NEGATIVE) 03/19/17 20:28 Urine Urobilinogen 0.2 E.U./dL (<1 E.U./dL) 03/19/17 20:28 Ur Leukocyte Esterase Negative [place]/uL (NEGATIVE) 03/19/17 20:28 Urine RBC 1 - 3 /hpf (0-2) 03/19/17 20:28 Urine WBC Negative /hpf (0-6) 03/19/17 20:28 Ur Epithelial Cells 0 - 2 /hpf (0-5) 03/19/17 20:28 Urine Bacteria Few (NEG) 03/19/17 20:28 - Hospital Course Hospital Course: Mr Coelho is a 36 yo M with PMH of asthma presented to ER complaining of frequent urination and excessive thirst for the past 7 days, associated with fatigue and vomiting. He also reports a 2 day history of diarrhea 2 days ago, started with very dark (but not black) stools which then became green, then soft brown. He denies F/C, CP, SOB, cough, abdominal pain, sore throat, nasal congestion, recent illness or travel, sick contacts. He admits to vomiting whenever he tries to eat or drink. He has never had this problem before. Pt was found to be hyperglycemic with glu 479 and AG 20, with ketonuria. Patient was transferred to the ICU and started on insulin drip. Endo was consulted. In the ICU, the AG closed and insulin was switched to SC. A1C was 9.3. Pt was started on sliding scale and his FS were around 200. Patient was transferred to med-surg floor for monitoring. On morning of d/c, pt was stable and in NAD, with no acute overnight events or complaints. Prior to discharge, the patient was educated on his new onset diabetes, how to check his blood sugar, and how to inject insulin. Pt was also educated about proper food choices and lifestyle modifications. Per Dr. Dubose, pt to be d/c Humulin 70/30 30u ac breakfast and 20u ac dinner, and NPH at night. Told to f/u PMD or private MD (pt doesn't currently have MD but states has an MD for him), and Dr. Meléndez for endo . - Date & Time of H&P Date of H&P: 03/19/17 Time of H&P: 21:55 Discharge Exam - Skin Additional comments: - Constitutional Appears: No Acute Distress, Other (obese) - Head Exam Head Exam: ATRAUMATIC, NORMAL INSPECTION, NORMOCEPHALIC - Eye Exam Eye Exam: EOMI, Normal appearance, PERRL Pupil Exam: NORMAL ACCOMODATION, PERRL - ENT Exam ENT Exam: Mucous Membranes Dry - Neck Exam Neck Exam: Full ROM, Normal Inspection - Respiratory Exam Respiratory Exam: Clear to Ausculation Bilateral, NORMAL BREATHING PATTERN. absent: Rales, Rhonchi, Wheezes, Respiratory Distress, Stridor - Cardiovascular Exam Cardiovascular Exam: REGULAR RHYTHM, RRR, +S1, +S2. absent: Murmur - GI/Abdominal Exam GI & Abdominal Exam: Soft, Normal Bowel Sounds. absent: Distended, Firm, Guarding, Rigid, Tenderness - Extremities Exam Extremities Exam: Normal Inspection. absent: Pedal Edema - Back Exam Back Exam: NORMAL INSPECTION - Neurological Exam Neurological Exam: Alert, Awake, Oriented x3 - Psychiatric Exam Psychiatric exam: Normal Affect, Normal Mood - Skin Skin Exam: Dry, Intact, Normal Color, Warm Discharge Plan - Discharge Medications Prescriptions: Insulin Human NPH/Reg [humulin 70/30 70 U/Ml-30 U/Ml 10 Ml] 30 ml SC ACB #14 ml Insulin Human NPH/Reg [humulin 70/30 70 U/Ml-30 U/Ml 10 Ml] 20 ml SC ACD #14 ml - Follow Up Plan Condition: FAIR Disposition: HOME/ ROUTINE Instructions: Insulin NPH/Regular (By injection), How to Check Your Blood Sugar (DC), Diabetic Ketoacidosis (DC), Diabetic Ketoacidosis (GEN), What is Insulin (DC), What is Insulin (GEN), Giving an Insulin Injection (DC), Giving an Insulin Injection (GEN) Additional Instructions: Mr. Coelho 1. Please follow-up with a private primary MD or in our free clinic 2. You are prescribed Humulin insulin 30u before breakfast and 20u before dinner 3. Measure your finger sticks daily and keep a log so that you can show your sugar control 4. If you experience any weakness, dizziness, chest pain, or feel like you will pass out, please go to the ER for further evaluation 5. If you are uncomfortable with measuring your glucose or administering the insulin, please ask one of the nurses before leaving! 6. Consider lifestyle modifications including low-carb, low-salt and low-fat diet Thank you Juanita Gee PGY1 Dr. Carmona, attending physician Referrals: Macho Meléndez MD [Staff Provider] - [facility], [Non-Staff] - <Jarad Carmona - Last Filed: 03/21/17 18:17> Provider - Provider Date of Admission: 03/19/17 20:40 Attending physician: Jarad Carmona MD Hospital Course - Lab Results Lab Results: Micro Results 03/19/17 23:30 Nose MRSA Culture (Admit) - Final MRSA NOT DETECTED Most Recent Lab Values WBC 11.8 10^3/ul (4.5-11.0) H 03/21/17 05:10 RBC 5.04 10^6/uL (3.5-6.1) 03/21/17 05:10 Hgb 14.6 g/dL (14.0-18.0) 03/21/17 05:10 Hct 41.8 % (42.0-52.0) L 03/21/17 05:10 MCV 82.9 fl (80.0-105.0) 03/21/17 05:10 MCH 29.0 pg (25.0-35.0) 03/21/17 05:10 MCHC 34.9 g/dl (31.0-37.0) 03/21/17 05:10 RDW 13.8 % (11.5-14.5) 03/21/17 05:10 Plt Count 109 10^3/uL (120.0-450.0) L 03/21/17 05:10 MPV 11.2 fl (7.0-11.0) H 03/21/17 05:10 Gran % 53.1 % (50.0-68.0) 03/21/17 05:10 Lymph % (Auto) 36.4 % (22.0-35.0) H 03/21/17 05:10 [place] % (Auto) 7.3 % (1.0-6.0) H 03/21/17 05:10 Eos % (Auto) 2.8 % (1.5-5.0) 03/21/17 05:10 Baso % (Auto) 0.4 % (0.0-3.0) 03/21/17 05:10 Gran # 6.25 (1.4-6.5) 03/21/17 05:10 Lymph # 4.3 (1.2-3.4) H 03/21/17 05:10 [place] # 0.9 (0.1-0.6) H 03/21/17 05:10 Eos # 0.3 (0.0-0.7) 03/21/17 05:10 Baso # 0.05 K/mm3 (0.0-2.0) 03/21/17 05:10 pO2 47 mm/Hg (30-55) 03/19/17 18:55 VBG pH 7.29 (7.32-7.43) L 03/19/17 18:55 VBG pCO2 41.0 (40-60) 03/19/17 18:55 VBG HCO3 19.7 mmol/l (21-28) L 03/19/17 18:55 VBG Total CO2 21.0 mmol.L (22-28) L 03/19/17 18:55 VBG O2 Sat (Calc) 84.4 % (40-65) H 03/19/17 18:55 VBG Base Excess -6.6 mmol/L (0.0-2.0) L 03/19/17 18:55 VBG Potassium 4.7 mmol/L (3.6-5.2) 03/19/17 18:55 Sodium 140.0 mmol/L (132-148) 03/19/17 18:55 Chloride 101.0 mmol/L (98-107) 03/19/17 18:55 Glucose 475 mg/dl (75-110) H* 03/19/17 18:55 Lactate 1.7 mmol/L (0.7-2.1) 03/19/17 18:55 FiO2 21.0 % 03/19/17 18:55 Sodium 141 mmol/L (132-148) 03/21/17 05:10 Potassium 4.0 mmol/L (3.6-5.0) 03/21/17 05:10 Chloride 106 mmol/L (98-107) 03/21/17 05:10 Carbon Dioxide 25 mmol/L (21-33) 03/21/17 05:10 Anion Gap 14 (10-20) 03/21/17 05:10 BUN 12 mg/dL (7-21) 03/21/17 05:10 Creatinine 1.1 mg/dL (0.5-1.4) 03/21/17 05:10 Est GFR ( Amer) > 60 03/21/17 05:10 Est GFR (Non-Af Amer) > 60 03/21/17 05:10 POC Glucose (mg/dL) 383 mg/dL (65-110) H 03/21/17 11:18 Random Glucose 234 mg/dL (70-110) H 03/21/17 05:10 Hemoglobin A1c 9.3 % (4.2-6.5) H 03/20/17 04:20 Calcium 8.7 mg/dL (8.4-10.5) 03/21/17 05:10 Phosphorus 4.3 mg/dL (2.5-4.5) 03/19/17 22:06 Magnesium 2.1 mg/dL (1.7-2.2) 03/19/17 22:06 Total Bilirubin 1.1 mg/dL (0.2-1.3) 03/19/17 18:55 AST 29 U/L (17-59) 03/19/17 18:55 ALT 37 U/L (7-56) 03/19/17 18:55 Alkaline Phosphatase 138 U/L (38-126) H 03/19/17 18:55 Total Protein 9.7 g/dL (5.8-8.3) H 03/19/17 18:55 Albumin 4.9 g/dL (3.0-4.8) H 03/19/17 18:55 Globulin 4.8 gm/dL 03/19/17 18:55 Albumin/Globulin Ratio 1.0 (1.1-1.8) L 03/19/17 18:55 Venous Blood Potassium 4.7 mmol/L (3.6-5.2) 03/19/17 18:55 Urine Color Yellow (YELLOW) 03/19/17 20:28 Urine Appearance Clear (CLEAR) 03/19/17 20:28 Urine pH 6.0 (4.7-8.0) 03/19/17 20:28 Ur Specific [place] 1.015 (1.005-1.035) 03/19/17 20:28 Urine Protein Negative mg/dL (<30 mg/dL) 03/19/17 20:28 Urine Glucose (UA) >=1000 mg/dL (NEGATIVE) 03/19/17 20:28 Urine Ketones >=80 mg/dL (NEGATIVE) 03/19/17 20:28 Urine Blood Trace-intact (NEGATIVE) H 03/19/17 20:28 Urine Nitrate Negative (NEGATIVE) 03/19/17 20:28 Urine Bilirubin Negative (NEGATIVE) 03/19/17 20:28 Urine Urobilinogen 0.2 E.U./dL (<1 E.U./dL) 03/19/17 20:28 Ur Leukocyte Esterase Negative [place]/uL (NEGATIVE) 03/19/17 20:28 Urine RBC 1 - 3 /hpf (0-2) 03/19/17 20:28 Urine WBC Negative /hpf (0-6) 03/19/17 20:28 Ur Epithelial Cells 0 - 2 /hpf (0-5) 03/19/17 20:28 Urine Bacteria Few (NEG) 03/19/17 20:28 Attending/Attestation - Attestation I have personally seen and examined this patient.: Yes I have fully participated in the care of the patient.: Yes I have reviewed all pertinent clinical information, including history, physical exam and plan: Yes Notes (Text): I have seen and examined patient at bedside. Agree with the above note with the following additions/ exceptions: Briefly this is 36 year old male with history of asthma who was admitted for new onset uncontrolled DM -2 and DKA. Gap has now closed. A1C is 9.3. Endo consult appreciated. Dietitian and diabetic nurse consult appreciated. Continue Humilin and NPH. Patient will follow up with PMD of choice and Dr [place]. Dr Jarad Carmona
--- NOTE | 2017-03-21 22:03 | PN ---
ENDO FOLLOWUP NOTE DATE: LOCATION: Room 366. SUBJECTIVE: This is a 36-year-old male with recent uncontrolled type 2 insulin requiring diabetes, now being followed closely for metabolic management. He presented here with state and mild ketosis and received vigorous IV hydration with intensive insulin therapy as given. He has since been improved clinically and metabolically as noted thereof. LABORATORY DATA: His latest glucose levels have ranged from 241 to 383 mg/dL. The latest chemistry showed the BUN of 12, sodium 141, potassium 4.0, chloride 106, CO2 of 25, glucose 234 and creatinine 1.1. PLAN: So at this time, would recommend for eventual discharge. The combination of a premixed insulin regimen with basal insulin given as Humulin NPH 20 units at bedtime. We will also recommend Humulin 70/30, given as 40 units before breakfast and 30 units before dinner as ordered. We will titrate incrementally as indicated to optimize metabolic control. We will follow. Brina Dubose MD
== END 2017-03-21 15:34 | disposition home or self-care (01) | DRG 294 ==
LOC: ED 17:32 → ERH 20:40 → CCU 23:41 → 3RNO 03-21 06:09
PROVIDERS: ADMIT Hospitalist; ATTEND Hospitalist
DX: E13.10 Other specified diabetes mellitus with ketoacidosis without coma (principal); E86.0 Dehydration; J45.20 Mild intermittent asthma, uncomplicated; F12.90 Cannabis use, unspecified, uncomplicated; E66.9 Obesity, unspecified; Z68.36 Body mass index [BMI] 36.0-36.9, adult; F17.210 Nicotine dependence, cigarettes, uncomplicated; Z83.3 Family history of diabetes mellitus; Z82.49 Family history of ischemic heart disease and other diseases of the circulatory system